=== PATIENT | female | born 1985 | race African-American/Black ===

== ENCOUNTER 2017-06-12 11:33 | Emergency (ER) | payer MEDICAID ==
[~2017-06-12] VITALS: Ht 162.6 cm; Wt 45.4 kg
[2017-06-12 11:43] VITALS: BP 129/78
[2017-06-12] MEDS ORDERED: LIDOCAINE VISCOUS 2% UD 15 ML UDC MM ONE (12:00)
[2017-06-12] MEDS ORDERED: MAG HYDROX/AL HYDROX/SIMETH 30 ML UDC PO ONE (12:00)
[2017-06-12] MEDS ORDERED: LIDOCAINE VISCOUS 2% UD 15 ML UDC ONE (12:24)
[2017-06-12] MEDS ORDERED: MAG HYDROX/AL HYDROX/SIMETH 30 ML UDC ONE (12:25)
[2017-06-12] MEDS ORDERED: DEXAMETHASONE SOD PHOSPHATE 10 MG/ML VIAL ONE (12:57)
[2017-06-12] MEDS ORDERED: DEXAMETHASONE SOD PHOSPHATE 4 MG/ML VIAL IM ONE (13:00)
[2017-06-12 14:14] LABS: MONOTEST NEGATIVE (NEGATIVE)
== END 2017-06-12 14:28 | disposition home or self-care (01) ==
LOC: ER 11:34
DX: J02.9 Acute pharyngitis, unspecified (principal)
CPT/HCPCS: 36415; 86308-TC; 86403-TC; 87070-TC; A4606; J1100; Z7610